=== PATIENT | male | born 1980 | race Caucasian/White ===

== ENCOUNTER 2016-10-23 20:20 | Emergency (ER) | payer MEDICAID ==
[2016-10-23 20:49] VITALS: BP 144/95; PULSE 84; RESP 17; TEMP 98.3; O2SAT 100
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
[2016-10-23 22:47] LABS: BASO # 0.1 K/uL (0.0-0.2); BASO % 1.9 % (0.0-2.0); EOS # 0.4 K/uL (0.0-0.7); HEMOGLOBIN 11.1 g/dL (12.0-18.0); LYMPH # 2.2 K/uL (1.0-4.3); LYMPH % 27.1 % (20.0-40.0); MEAN CELL VOLUME 85.2 fL (80.0-94.0); MEAN CORPUSCULAR HEMOGLOBIN 26.2 pg (27.0-31.0); MEAN CORPUSCULAR HGB CONC 30.7 g/dL (33.0-37.0); MEAN PLATELET VOLUME 9.2 fL (7.2-11.7); MONO # 0.8 K/uL (0.0-0.8); MONO % 10.3 % (0.0-10.0); NEUT # 4.5 K/uL (1.8-7.0); NEUT % 55.7 % (50.0-75.0); RBC 4.26 Mil/uL (4.40-5.90); RED CELL DISTRIBUTION WIDTH 16.4 % (11.5-14.5)
[2016-10-23 22:53] LABS: ALBUMIN 4.1 g/dL (3.5-5.0)
[2016-10-23 22:56] LABS: GFR AFRICAN-AMERICAN > 60; GFR NON-AFRICAN AMERICAN > 60
[2016-10-23 22:57] LABS: ALB/GLOB RATIO 1.3 (1.0-2.1); ALT/SGPT 44 U/L (21-72); AST/SGOT 44 U/L (17-59); BLOOD UREA NITROGEN 15 mg/dL (9-20); CALCIUM 9.1 mg/dl (8.6-10.4)
== END 2016-10-23 23:39 | disposition home or self-care (01) ==
LOC: SUPCPDRO 20:20 → C.ER 20:20
DX: M79.89 Other specified soft tissue disorders (principal)